=== PATIENT | female | born 1990 | race Caucasian/White ===

== ENCOUNTER 2017-07-26 09:03 | Inpatient (IN) | payer BC ==
[2017-07-26 09:40] VITALS: BMI 18.1
--- NOTE | 2017-07-26 10:10 | C.PDOC ---
History Of Present Illness 26yo female, with history of depression and anger management issues, currently not on medications nor following up with therapy, presents today for evaluation after learning that her boyfriend cheated on her. Patient states she has been feeling depressed, upset, overwhelmed and states her feelings worsened on her way to school and she briefly thought of jumping in front of the train. She denies any physical complaints. Time Seen by Provider: 07/26/17 09:52 Chief Complaint (Nursing): Psychiatric Evaluation History Per: Patient History/Exam Limitations: no limitations Onset/Duration Of Symptoms: Days Associated Symptoms: Depression Past Medical History Reviewed: Historical Data, Nursing Documentation, Vital Signs Vital Signs: Last Vital Signs Temp 99.0 F 07/26/17 12:14 Pulse 101 H 07/26/17 16:20 Resp 16 07/26/17 14:05 BP 102/67 07/26/17 16:20 Pulse Ox 100 07/26/17 18:32 - Medical History PMH: Depression Surgical History: No Surg Hx Family History: States: No Known Family Hx - Social History Hx Alcohol Use: Yes Hx Substance Use: No - Immunization History Hx Tetanus Toxoid Vaccination: No Hx Influenza Vaccination: Yes Hx Pneumococcal Vaccination: No Review Of Systems Constitutional: Negative for: Fever, Chills Cardiovascular: Negative for: Chest Pain Respiratory: Negative for: Cough Gastrointestinal: Negative for: Abdominal Pain Psych: Positive for: Depression Physical Exam - Physical Exam Appears: Non-toxic, No Acute Distress, Other (patient is tearful during exam) Skin: Warm, Dry Eye(s): bilateral: Normal Inspection Neck: Supple Chest: Symmetrical Cardiovascular: Rhythm Regular (tachycardic) Respiratory: Normal Breath Sounds, No Wheezing Gastrointestinal/Abdominal: Soft, No Tenderness Extremity: Normal ROM Neurological/Psych: Oriented x3, Normal Speech, Normal Cognition ED Course And Treatment - Laboratory Results Result Diagrams: 07/26/17 10:25 07/26/17 10:25 O2 Sat by Pulse Oximetry: 100 (RA) Pulse Ox Interpretation: Normal Medical Decision Making Medical Decision Making: Impression: Psychiatric evaluation Plan: -- Labs -- Crisis evaluation 1147 am pt is medically cleared for psychiatric evaluation. accepted by Dr Reina for depression. 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 - Scribe Statement The provider has reviewed the documentation as recorded by the Michaelibe Maribel Moss Provider Scribe Attestation: All medical record entries made by the Michaelibe were at my direction and personally dictated by me. I have reviewed the chart and agree that the record accurately reflects my personal performance of the history, physical exam, medical decision making, and the department course for this patient. I have also personally directed, reviewed, and agree with the discharge instructions and disposition.
[2017-07-26 10:29] LABS: BASO % 0.5 % (0.0-2.0); EOS % 0.2 % (0.0-4.0); HEMOGLOBIN 13.6 g/dL (11.0-16.0); MEAN CELL VOLUME 89.2 fL (81.0-99.0); MEAN CORPUSCULAR HEMOGLOBIN 31.2 pg (27.0-31.0); MEAN CORPUSCULAR HGB CONC 34.9 g/dL (33.0-37.0); MEAN PLATELET VOLUME 7.9 fL (7.2-11.7); MONO # 0.4 K/uL (0.0-0.8); MONO % 6.2 % (0.0-10.0); NEUT # 4.6 K/uL (1.8-7.0); NEUT % 65.1 % (50.0-75.0); NRBC % 0.1 % (0.0-2.0); RBC 4.35 Mil/uL (3.80-5.20); RED CELL DISTRIBUTION WIDTH 12.3 % (11.5-14.5)
[2017-07-26 10:41] LABS: ALB/GLOB RATIO 1.3 (1.0-2.1); ALBUMIN 4.4 g/dL (3.5-5.0); ALT/SGPT 35 U/L (9-52); AST/SGOT 32 U/L (14-36); BLOOD UREA NITROGEN 10 mg/dL (7-17); CALCIUM 9.4 mg/dl (8.6-10.4); GFR AFRICAN-AMERICAN > 60; GFR NON-AFRICAN AMERICAN > 60
[2017-07-26 10:58] LABS: SQUAMOUS EPITHIAL 3 /hpf (0-5); URINE BILIRUBIN NEGATIVE (NEGATIVE); URINE BLOOD NEGATIVE (NEGATIVE); URINE CLARITY Hazy (Clear); URINE COLOR Yellow (YELLOW); URINE GLUCOSE (UA) NORMAL (Normal); URINE LEUKOCYTE ESTERASE NEG Leu/uL (Negative); URINE NITRATE NEGATIVE (NEGATIVE); URINE PROTEIN NEGATIVE (NEGATIVE); URINE UROBILINOGEN NORMAL mg/dL (0.2-1.0)
[2017-07-26 11:06] LABS: HCG,QUALITATIVE URINE NEGATIVE (NEGATIVE)
[2017-07-26 11:25] LABS: BARBITURATES, UR NEGATIVE (NEGATIVE); BENZODIAZEPINES, UR NEGATIVE (NEGATIVE); OPIATES, UR NEGATIVE (NEGATIVE); PHENCYCLIDINE, UR NEGATIVE (NEGATIVE)
--- NOTE | 2017-07-26 14:00 | PCM.BM ---
<Gina Jamesn - Last Filed: 07/26/17 13:58> Treatment Plan Problems - Problems identified on initial assessmt Depression Date Initiated: 07/26/17 Time Initiated: 13:58 Assessment reference: NA Status: Active Suicidal Ideations Date Initiated: 07/26/17 Time Initiated: 13:59 Assessment reference: NA Status: Monitor Treatment assets and liabiliti Patient Assests: cooperative, educated, insightful, ADL independent, physically healthy, good support system, negotiates basic needs, financial stabiity, cognitively intact, good interpersonal skills Patient Liabilities: relationship conflicts - Milieu Protocol Maintain good personal hygiene: daily Encourage regular showers, daily Remind patient to perform daily oral care, daily Assist patient to perform ADL's Maintain personal safety: every shift Educate patient to report safety concerns to staff, every shift Monitor environment for contraband/sharps Medication safety: Monitor for expected outcome, potential side effects: every shift, Assess barriers to learning: every shift, Assess readiness for medication education: every shift <Layo Reina - Last Filed: 07/27/17 10:53> - Diagnosis (1) Bipolar disorder, curr episode mixed, severe, w/o psychotic features Status: Acute Interventions: 07/27/17 10:53 * Assess/adjust medications daily and /or as needed * See patient on an individual basis 7x/week to assess level of manic behaviors and stability * Discuss risks, benefits, side effects and alternatives of medications * <Yenifer Rodriguez - Last Filed: 07/27/17 10:58> Family Contact Family involvement: Family/SO is involved Family contact: Patient agrees to contact Family contact name: Mother Family contacted how many times per week?: 2 - Goals for Treatment Patient goals for treatment: "I want to see a therapist." Discharge/Continuing Care - Education Needs Education Needs: Patient Medication, Patient Coping Skills - Discharge Discharge Criteria: Tolerates medication w/o severe side effects, Free of Suicidal thoughts Discharge to:: Home - Treatment Team Participation Discussed with Family/SO: No Was Patient/Family/SO present at Treatment Team Meeting: Yes
--- NOTE | 2017-07-26 16:35 | PCM.PSYCH ---
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 Pt reports history of depressive disorder in the past, however, she denies any history of inpatient psychiatric hospitalization in the past. She reports h/o follow up with a psychiatrist in the past. Pt reports that she found out yesterday that her boyfriend is cheating on her. She became increasingly depressed and suicidal. As per her, she was standing at the train station this morning and contemplated jumping in front of the train. She also states that she had a pair of scissors yesterday and had thoughts of hurting herself at that time as well. Pt reports a history of self harm, pt states that she was upset "years ago" and cut herself. Pt states that she felt better after cutting and she did not seek help. She remained isolated, withdrawn and depressed. She reports feelings of hopelessness and helplessness. She also reports at times her brain runs faster and she becomes anxious. She reports poor focus and poor concentration. However , she denies any AVH or any delusions. PMH: Asthma Current Medications: Active Medications Generic Name Dose Route Start Last Admin Trade Name Freq PRN Reason Stop Dose Admin [place] Carbonate 150 mg 07/26/17 18:00 [place]ade Carbonate 150mg PO BID FELICIA Pneumococcal Polyvalent Vaccine 0.5 ml 07/28/17 10:00 Pneumovax 23 Vaccine IM 07/28/17 10:01 .ONCE ONE Past Psychiatric History - Past Psychiatric History Previous Treatment History: Inpatient Pertinent Medical Hx (Current Medical&Sleep Prob, Allergies): Allergies Allergy/AdvReac Type Severity Reaction Status Date / Time No Known Allergies Allergy Verified 07/26/17 09:39 Fexofenadine/Pseudoephedrine [Maria E-D 24 Hour Tablet] 1 each PO DAILY Review of Systems - Review of Systems All systems: reviewed and no additional remarkable complaints except - Psychiatric Psychiatric: Anxiety, Difficulty Concentrating, Irritability, Suicidal Ideation Mental Status Examination - Personal Presentation Personal Presentation: Looks stated age - Affect Affect: Constricted, Depressed - Motor Activity Motor Activity: Calm - Reliability in Providing Information Reliability in Providing Information: Fair - Speech Speech: Organized - Mood Mood: Depressed, Anxious - Formal Thought Process Formal Thought Process: Flight of ideas - Obsessions/Compulsions Obsessions: No Compulsions: No - Cognitive Functions Orientation: Person, Place, Situation, Time Sensorium: Alert Attention/Concentration: Attentive Abstract Thinking: Lawrence Estimate of Intelligence: Below average Judgement: Imparied, as evidence by: Poor judgement, Imparied, as evidence by: Lack of insight into illness - Risk Risk: Suicidal, Diminished functioning - Strength & Assets Inventory Strength & Assets Inventory: Employment status DSM 5 DX - DSM 5 DSM 5 Diagnosis: Bipolar disorder depressed severe without psychotic features - Recommended/Plan of Treatment Treatment Recommendations and Plan of Treatment: Bipolar disorder depressed severe without psychotic features -CBT -Psychoeducation -Supportive therapy, group therapy, individual therapy -[place] 150 mg PO BID -Hydroxyzine 25 mg PO Q6 hr prn -Trazodone 50 mg by mouth daily at bedtime H/O Asthma -Monitor s/s - Smoking Cessation Smoking Cessation Initiated: No
[2017-07-26] MEDS: Lithium Carbonate 150 MG CAP PO SCH (18:05)
[2017-07-26 18:32] VITALS: O2SAT 100
[2017-07-27] MEDS: Lithium Carbonate 150 MG CAP PO SCH (10:18)
--- NOTE | 2017-07-27 10:57 | PCM.PYCHPN ---
Psychiatric Progress Note - Psychiatric Progress Note Patient seen today, length of contact: 15 min Patient Chief Complaint: I am feeling little better.' Problems Identified/Issues Discussed: Patient seen and evaluated, chart reviewed and discussed with the nurse. Today patient reports some improvement in her irritability, anxiety and agitation. She reports some improvement in the racing of thoughts and flight of ideas. She still reports depressed mood and feelings of hopelessness. She is still crying at times and she remained isolated and withdrawn. She is taking that medication and denies any side effects. Symptoms are improving but she needs more time for stabilization. Supportive therapy and psychoeducation were given. Medication Change: Yes (Increase lithium) Medical Record Reviewed: Yes Mental Status Examination - Cognitive Function Orientation: Person, Place, Situation, Time Memory: Intact Attention: WNL Concentration: Poor Association: WNL - Mood Mood: Depressed, Anxious - Affect Affect: Constricted, Depressed - Speech Speech: Soft - Formal Thought Process Formal Thought Process: Flight of ideas - Suicidal Ideation Suicidal Ideation: Yes - Homicidal Ideation Homicidal Ideation: No Goal/Treatment Plan - Goal/Treatment Plan Need for Continued Stay: Severe depression anxiety, Severe functional impairment Progress Toward Problem(s) and Goals/Treatment Plan: Bipolar disorder depressed severe without psychotic features -CBT -Psychoeducation -Supportive therapy, group therapy, individual therapy -Increase [place] 300 mg PO BID -Hydroxyzine 25 mg PO Q6 hr prn -Trazodone 50 mg by mouth daily at bedtime H/O Asthma -Monitor s/s
[2017-07-28 06:43] VITALS: BP 100/61; PULSE 66; RESP 18; TEMP 98
--- NOTE | 2017-07-28 09:55 | PCM.PYCHDC ---
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 Pt reports history of depressive disorder in the past, however, she denies any history of inpatient psychiatric hospitalization in the past. She reports h/o follow up with a psychiatrist in the past. Pt reports that she found out yesterday that her boyfriend is cheating on her. She became increasingly depressed and suicidal. As per her, she was standing at the train station this morning and contemplated jumping in front of the train. She also states that she had a pair of scissors yesterday and had thoughts of hurting herself at that time as well. Pt reports a history of self harm, pt states that she was upset "years ago" and cut herself. Pt states that she felt better after cutting and she did not seek help. She remained isolated, withdrawn and depressed. She reports feelings of hopelessness and helplessness. She also reports at times her brain runs faster and she becomes anxious. She reports poor focus and poor concentration. However , she denies any AVH or any delusions. Consultations:: List each consultation separately and include: 1. Reason for request. 2. Findings. 3. Follow-up Summary of Hospital Course include:: 1. Description of specific treatment plan utilized for patients during their course of treatmen. 2. Summarize the time- course for resolution of acute symptoms and/or regressed behaviors. 3. Describe issues identified and worked on during hospitalization. 4. Describe medication utilized. 5. Describe medical problems identified and treated. 6. 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 Pt reports history of depressive disorder in the past, however, she denies any history of inpatient psychiatric hospitalization in the past. She reports h/o follow up with a psychiatrist in the past. Pt reports that she found out yesterday that her boyfriend is cheating on her. She became increasingly depressed and suicidal. As per her, she was standing at the train station this morning and contemplated jumping in front of the train. She also states that she had a pair of scissors yesterday and had thoughts of hurting herself at that time as well. Pt reports a history of self harm, pt states that she was upset "years ago" and cut herself. Pt states that she felt better after cutting and she did not seek help. She remained isolated, withdrawn and depressed. She reports feelings of hopelessness and helplessness. She also reports at times her brain runs faster and she becomes anxious. She reports poor focus and poor concentration. However , she denies any AVH or any delusions. PMH: Asthma - Diagnosis (1) Bipolar disorder, curr episode mixed, severe, w/o psychotic features Current Visit: Yes Status: Acute - Final Diagnosis (DSM 5) Condition upon Discharge: FAIR DSM 5: Bipolar disorder depressed severe without psychotic features Disposition: HOME/ ROUTINE Follow-up Treatment Plan: Bipolar disorder depressed severe without psychotic features -CBT -Psychoeducation -Supportive therapy, group therapy, individual therapy -Increase [place] 300 mg PO BID -Hydroxyzine 25 mg PO Q6 hr prn -Trazodone 50 mg by mouth daily at bedtime H/O Asthma -Monitor s/s Prescriptions/Medication Reconciliation: [place] Carbonate [[place] Carbonate 300MG] 300 mg PO BID #60 cap traZODone [Desyrel] 50 mg PO HS PRN #30 tab PRN Reason: Insomnia
[2017-07-28] MEDS ORDERED: Pneumococcal 23-Valent Vaccine IM ONE (10:00)
[2017-07-28] MEDS ORDERED: Influenza Vaccine 60 mcg/0.5 mL SYR (4YR UP) IM ONE (10:00)
== END 2017-07-28 11:00 | disposition home or self-care (01) | DRG 885 ==
LOC: C.ER 09:03 → C.5E 12:09
PROVIDERS: ADMIT Psychiatry & Neurology Psychiatry; ATTEND Psychiatry & Neurology Psychiatry
PROC: GZ3ZZZZ Medication Management (ICD-10-PCS; principal; 2017-07-26)
PROC: GZHZZZZ Group Psychotherapy (ICD-10-PCS; 2017-07-26)
PROC: GZ56ZZZ Individual Psychotherapy, Supportive (ICD-10-PCS; 2017-07-26)
DX: F31.4 Bipolar disorder, current episode depressed, severe, without psychotic features (principal); R45.851 Suicidal ideations; F17.210 Nicotine dependence, cigarettes, uncomplicated; J45.909 Unspecified asthma, uncomplicated; Z91.5 Personal history of self-harm

== ENCOUNTER 2018-04-14 18:19 | Emergency (ER) | payer BC ==
[2018-04-14 18:58] VITALS: TEMP 99.6; O2SAT 100; BMI 18.4
[2018-04-14 19:48] LABS: HCG,QUALITATIVE URINE NEGATIVE (NEGATIVE); SQUAMOUS EPITHIAL < 1 /hpf (0-5); URINE BACTERIA RARE (<OCC); URINE BILIRUBIN NEGATIVE (NEGATIVE); URINE BLOOD NEGATIVE (NEGATIVE); URINE CLARITY Clear (Clear); URINE COLOR Colorless (YELLOW); URINE GLUCOSE (UA) NORMAL (Normal); URINE LEUKOCYTE ESTERASE NEG Leu/uL (Negative); URINE PROTEIN NEGATIVE (NEGATIVE); URINE UROBILINOGEN NORMAL mg/dL (0.2-1.0)
[2018-04-14 19:51] LABS: BASO % 0.6 % (0.0-2.0); EOS # 0.1 K/uL (0.0-0.7); EOS % 1.8 % (0.0-4.0); HEMOGLOBIN 12.9 g/dL (11.0-16.0); LYMPH # 2.6 K/uL (1.0-4.3); LYMPH % 31.8 % (20.0-40.0); MEAN CELL VOLUME 89.5 fL (81.0-99.0); MEAN CORPUSCULAR HEMOGLOBIN 30.3 pg (27.0-31.0); MEAN CORPUSCULAR HGB CONC 33.8 g/dL (33.0-37.0); MONO # 0.6 K/uL (0.0-0.8); MONO % 6.9 % (0.0-10.0); NEUT # 4.8 K/uL (1.8-7.0); NEUT % 58.9 % (50.0-75.0); NRBC % 0.1 % (0.0-2.0); RBC 4.26 Mil/uL (3.80-5.20); RED CELL DISTRIBUTION WIDTH 12.3 % (11.5-14.5); WHITE BLOOD COUNT 8.1 K/uL (4.8-10.8)
[2018-04-14 20:03] LABS: ALB/GLOB RATIO 1.5 (1.0-2.1); ALBUMIN 4.6 g/dL (3.5-5.0); ALT/SGPT 24 U/L (9-52); AST/SGOT 20 U/L (14-36); BLOOD UREA NITROGEN 7 mg/dL (7-17); CALCIUM 9.7 mg/dl (8.6-10.4); GFR NON-AFRICAN AMERICAN > 60
[2018-04-14 20:20] LABS: BARBITURATES, UR NEGATIVE (NEGATIVE); BENZODIAZEPINES, UR NEGATIVE (NEGATIVE); OPIATES, UR NEGATIVE (NEGATIVE); PHENCYCLIDINE, UR NEGATIVE (NEGATIVE)
[2018-04-14 21:08] VITALS: BP 118/75; PULSE 76; RESP 16
--- NOTE | 2018-04-14 21:50 | C.PDOC ---
History Of Present Illness 27 year old female is sent into the emergency department by her psychiatrist for lithium toxicity. Patient states that she had blood drawn yesterday, and received a call from her psychiatrist due to lithium elevation and was instruct ed to present to the ED. Patient states that she started taking lithium for bipolar disorder in July 2017, and was started on her current dose in November 2017. She has no physical complaints at this time. Chief Complaint (Nursing): Medical Clearance History Per: Patient History/Exam Limitations: no limitations Past Medical History Reviewed: Historical Data, Nursing Documentation, Vital Signs Vital Signs: Last Vital Signs Temp 99.6 F 04/14/18 21:05 Pulse 76 04/14/18 21:05 Resp 16 04/14/18 21:05 BP 118/75 04/14/18 21:05 Pulse Ox 100 04/14/18 21:05 - Medical History PMH: Bipolar Disorder, Depression Denies: Diabetes, Hepatitis, HIV, HTN, Seizures, Sexually Transmitted Disease Surgical History: No Surg Hx - [facility] Procedures GROUP PSYCHOTHERAPY (07/26/17) INDIVIDUAL PSYCHOTHERAPY, SUPPORTIVE (07/26/17) MEDICATION MANAGEMENT (07/26/17) Family History: States: No Known Family Hx - Social History Hx Alcohol Use: Yes Hx Substance Use: Yes - Immunization History Hx Tetanus Toxoid Vaccination: No Hx Influenza Vaccination: Yes Hx Pneumococcal Vaccination: No Review Of Systems Except As Marked, All Systems Reviewed And Found Negative. Constitutional: Negative for: Fever, Chills Cardiovascular: Negative for: Chest Pain Gastrointestinal: Negative for: Nausea, Vomiting, Abdominal Pain Physical Exam - Physical Exam Appears: Non-toxic, No Acute Distress Skin: Warm, Dry Head: Atraumatic, Normacephalic Eye(s): bilateral: Normal Inspection, PERRL, EOMI Oral Mucosa: Moist Neck: Normal, Supple Chest: Symmetrical, No Tenderness Cardiovascular: Rhythm Regular, No Murmur Respiratory: Normal Breath Sounds, No Rales, No Rhonchi, No Wheezing Gastrointestinal/Abdominal: Soft, No Tenderness, No Guarding, No Rebound Neurological/Psych: Oriented x3, Normal Speech, Normal Cognition ED Course And Treatment - Laboratory Results Result Diagrams: 04/14/18 19:40 04/14/18 19:40 O2 Sat by Pulse Oximetry: 100 (RA) Pulse Ox Interpretation: Normal Progress Note: Plan: CT Head. Alcohol Serum. CMP. Drug Screen. [place]. Magnesium. Phosphorus. CBC. HCG Qualitative Urine. Urinalysis. [place] level is slightly under therapeutic, patient advised to continue taking lithium. Printout of all lab-work given to patient, and patient instructed to follow-up with her psychiatrist. Disposition - Disposition Referrals: Dotty Small, [Non-Staff] - Disposition: HOME/ ROUTINE Disposition Time: 20:20 Condition: GOOD Additional Instructions: AIDAN CAST, thank you for letting us take care of you today. Your provider was Harris Perez DO and you were treated for SENT BY PMD FOR EVAL. The emergency medical care you received today was directed at your acute symptoms. If you were prescribed any medication, please fill it and take as directed. It may take several days for your symptoms to resolve. Return to the Emergency Department if your symptoms worsen, do not improve, or if you have any other problems. Please contact your doctor or call one of the physicians/clinics you have been referred to that are listed on the Patient Visit Information form that is included in your discharge packet. Bring any paperwork you were given at discharge with you along with any medications you are taking to your follow up visit. Our treatment cannot replace ongoing medical care by a primary care provider outside of the emergency department. Thank you for allowing the [facility] team to be part of your care today. Follow up with your psychiatrist in 2-3 days for re-evaluation and further management. Continue taking the [place] as prescribed. Instructions: [place] Forms: [employer] ([employer]) - Clinical Impression Clinical Impression: Abnormal laboratory test result - Scribe Statement The provider has reviewed the documentation as recorded by the Scribe (Akhil Bernard) Provider Attestation: All medical record entries made by the Scribe were at my direction and personally dictated by me. I have reviewed the chart and agree that the record accurately reflects my personal performance of the history, physical exam, [facility] decision making, and the department course for this patient. I have also personally directed, reviewed, and agree with the discharge instructions and disposition.
--- NOTE | 2018-04-15 14:21 | CT ---
Date of service: 04/14/2018 PROCEDURE: CT HEAD WITHOUT CONTRAST. HISTORY: r/o ICH COMPARISON: None available. TECHNIQUE: Axial computed tomography images were obtained through the head/brain without intravenous contrast. Radiation dose: Total exam DLP = 999.84 mGy-cm. This CT exam was performed using one or more of the following dose reduction techniques: Automated exposure control, adjustment of the mA and/or kV according to patient size, and/or use of iterative reconstruction technique. FINDINGS: HEMORRHAGE: No intracranial hemorrhage. BRAIN: Normal tompkins-white matter differentiation and density are appreciated throughout the cerebrum and cerebellum with the brainstem appearing unremarkable as well. There is no mass effect. There is no suspicious extra-axial fluid collection and the midline brain anatomy appears diffusely unremarkable. VENTRICLES: Unremarkable. No hydrocephalus. CALVARIUM: Unremarkable. PARANASAL SINUSES: Unremarkable as visualized. No significant inflammatory changes. MASTOID AIR CELLS: Unremarkable as visualized. No inflammatory changes. OTHER FINDINGS: None. IMPRESSION: Unremarkable CT of the Head. Concordant preliminary report from [facility], 04/14/2018.
== END 2018-04-14 21:08 | disposition home or self-care (01) ==
LOC: C.ER 18:19
DX: R78.89 Finding of other specified substances, not normally found in blood (principal); F31.9 Bipolar disorder, unspecified
CPT/HCPCS: 70450; 80053; 80178; 81001; 83735; 84100; 84703; 85025; 99283; G0480